=== PATIENT | female | born 1950 ===

== ENCOUNTER 2022-01-27 21:09 | Emergency (ER) | payer SELFPAY ==
[2022-01-27 21:28] VITALS: BP 136/50; PULSE 86; RESP 14; TEMP 36.2; O2SAT 99
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
[2022-01-27 23:05] VITALS: BP 136/50; PULSE 86; RESP 14; TEMP 36.2; O2SAT 99
== END 2022-01-27 23:07 | disposition home or self-care (01) ==
PROVIDERS: Emergency Provider Emergency Medicine
DX: Z59.00 Homelessness unspecified; F22 Delusional disorders
CPT/HCPCS: 99284; 99282

== ENCOUNTER 2023-03-24 15:09 | Emergency (ER) | payer SELFPAY ==
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
[2023-03-24 16:34] LABS: Bilirubin Negative (Negative); Blood Negative (Negative); Clarity Clear (Clear); Glucose Negative (Negative); Ketones Negative (Negative); Leukocyte Esterase Negative (Negative); Nitrite Negative (Negative); Urobilinogen 0.2 mg/dL (Up to 0.2); pH 5.5 (5-8)
[2023-03-24 16:45] LABS: *AMPHETAMINES SCREEN URINE Negative (Negative); *BARBITURATES SCREEN URINE Negative (Negative); *BENZODIAZEPINES SCREEN URINE Negative (Negative); Cannabinoids THC Negative (Negative); Cocaine Screen,Urine Negative (Negative); METHADONE URINE SCREEN Negative (Negative); OPIATES URINE SCREEN Negative (Negative)
[2023-03-24 16:49] LABS: Tricyclic Antidepressants Negative (Negative)
--- NOTE | 2023-03-24 19:37 | PDOC.MHCN ---
Date of service: 03/24/23 Time of Service: 19:37 Mental Health Emergency Note Release NK release signed:: Yes Reason for Visit This clinician supported [facility]'s Department out to [facility] to execute a MH Warrant by BENNIE Jeffers today. In the last 2 weeks has the pt presented for ES prior to today?: No Client Information Client is: New (The client has refused services since [facility]'s first involvement. ) Well Housed: No,status: Homeless Non Suicidal Self Injury Current: No History: No Safety Risk/Harm to Self or Others Current Ideation to Harm Self or Others: No Risk: Does risk to harm exist?: yes. Access to means: No. Risk: Moderate Risk Duty to warn indicated: No Asssessment/Mental Status Appearance: Other (The client is wearing many different layers to keep herself warm as the temperatures have begun to drop significantly.) Attitude: Cooperative, Guarded, Hostile and Other (uncooperative) Behavior: Agitated and Other (The client is argumentative and avoidant.) Speech: Normal and Other (Rapid) Affect: Cogruent with mood Mood: Elevated and Irritable Thought process: Racing, Loose associations and Tangential Hallucinations: No Delusions: yes, Mandaen and Persectory/Paranoid Attention: Wandering Perception: Derealization Orientation: Fully orientated Memory: Intact Insight: Fair Judgement: Poor Neurovegetative Symptoms Sleep: No change (Due to sleeping in a tent she reported being cold. ) Appetitie: No change Interests: No change Energy: No change Libido: Not applicable Substance Use: Do you use nicotine?: No Have you used substances in the last 7 days?: No Additional Issues: Assaultive/Threatening Behavior: No Medical Concerns: No Client engaged in active self harm w/weapon: No Threatening to run away: No Child reported abuse/neglect: No Voluntarily presenting for services: No Domestic violence is a concern: No Extreme Psychosis or extreme behavior is present: Yes Impression Client is a 71 y/o single female that is conically homeless due to her again, chronic MH issues. She has been evicted from most of the shelters during the COVID pandemic for her delusional and accusatory behaviors that put her at serious risk of harm. Per her botherAristides, the client has been hospitalized at [facility] in [facility] and was institutionalized in [facility]. She was reported to have been supported by her parents for much of her life and then decided to move back home after her father passed in 2000. Her brother's had to make her leave due to behaviors (not specified). In 2009 her mother passed as well. Aristides stated that he and his bother have had periodic calls from her to chat. Aristides reported that she has lived in [place], [place] and [place] and in the past 5 years in [place]. 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 The client reported that she moved to [place] for it being pedestrian friendly. She has lived in many different housing facilities due to her hopelessness. More recently, in the past several months she has been living in a tent in the back of a family's yard. This woman, Alicia Jin offered the client a tent, full framed bed, bedding a environmentally friendly commode and more recently a flash potty for comfort and safety after the client accused her of tampering with the commode resulting in it overflowing in the tent my tent that is actually owned by the civilian/woman who owns the property. . This woman, has also tried to find housing for the client that meets her specific disability and almost had one with [facility] however, [facility] stated that they needed the client to be involved with other services before they rented to her which the client has consistently been resistant to based on either fact or delusional believes. The client, despite this civilian's attempts was heard accusing her of putting chemicals into the air around her tent that are being pushed into her body through the tent covering. She reported noticing yellow grass around the tent in late January that proves' she is trying to harm her. She reported that [facility] is in charge of the hotels that support prostitution and drug pushing as well as, constant air pollution of chemicals to harm her. She stated that she was in this position back on August 21 (warrant) and because the state identified psychiatrist let her go, [facility], has made it there mission to get her again. She accuses this clinician of being a heroin user and addresses other [facility] coworkers with her diagnosis of their health issues i.e. this clinician is fat and a heroin user. She notes, and is consistent that she will not meet with anyone who is not a adventism person and shows her proof that they are not using heroin via a UA. It is very prominent, that even with said proof she would not believe/accuse the test as being altered. Client is known to [facility] and has had interactions with [facility] since November of 2021, however when offered services by [facility] the client has declined. The client has no verbalized intent of self harm, however, her continued delusional accusations toward Governor [place] as well as, others in the community she poses a huge risk of harm to herself inadvertently as her accusations are what she truly believes/delusions. These delusions are around everyone being a heroin user and drug pusher, as well as contaminating the air she breathes. Plan/Disposition Recommended Disposition: Hospitalization (referrals sent) No. Plan: The MH Warrant in its entirety has been faxed out. It tis this clinician's belief that if the client were to accost a community member with her accusations, who may possibly have a substance use disorder, she could unintentionally put herself at risk of harm or even without even knowing so. Person reported agreement to plan: No Reports/communication Outcome discussed with: ED/Personnel
--- NOTE | 2023-03-24 22:19 | NUR.NOTE ---
This RN attempted to collect blood from the PT. the PT refused the blood draw. ED MD notified. PT ok to not get labs drawn per ED MD renny Nursing Note:
--- NOTE | 2023-03-25 07:22 | W.EDPROG ---
Date of service: 03/25/23 Time of Service: 07:22 Medical Decision Making Resting comfortably overnight no acute distress. On involuntary hold, EEG for delusions and paranoia. Awaiting placement Sign Out Sign Out Data: Sign Out Comment: Patient here with paranoid delusional thought on warrant for emergency examination. Initial certification was performed by myself. Second certification pending by psychiatrist. Last updated by Rip Angelo MD at 03/24/23 16:43 Sign Out Comment: Psychiatric emergency hold. Pending placement and second certification by psychiatrist. Patient hemodynamically stable. Last updated by Jerad Ward DO at 03/24/23 22:19 Discharge Plan Discharge Details Chief Complaint: PsychEval Primary Care Provider: Unknown,Unknown ED Provider: Pradip Hendrickson Home Meds and New Rx's Prescriptions: No Action No Known Home Meds
--- NOTE | 2023-03-25 14:50 | W.EDPROG ---
Date of service: 03/25/23 Time of Service: 14:50 Medical Decision Making Patient signed out to me. On an EE hold for psychosis. Patient was evaluated for second CERT and a second CERT was filed. However legal reevaluated the case and has rescinded this certification. Patient was reevaluated by mental health. She continues to be psychotic and unable to fully develop a plan if she were to be discharged. Sign Out Sign Out Data: Sign Out Comment: Patient here with paranoid delusional thought on warrant for emergency examination. Initial certification was performed by myself. Second certification pending by psychiatrist. Last updated by Rip Angelo MD at 03/24/23 16:43 Sign Out Comment: Psychiatric emergency hold. Pending placement and second certification by psychiatrist. Patient hemodynamically stable. Last updated by Jerad Ward DO at 03/24/23 22:19 Sign Out Comment: EE for delusions, awaiting placement Last updated by Pradip Hendrickson MD at 03/25/23 07:33 Discharge Plan Discharge Details Chief Complaint: PsychEval Primary Care Provider: Unknown,Unknown ED Provider: Casey Hutson Home Meds and New Rx's Prescriptions: No Action No Known Home Meds
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
--- NOTE | 2023-03-25 17:19 | CMSP_ITS ---
Date of service: 03/25/23 Time of Service: 17:19 Care Management Safety Plan Status Status: Involuntary Reason for Wait Reason for Wait: Inpatient Admission Safety Plan Safety Plan: Safety plan has been established to meet the needs of the patient, and consideration of the care team, to adhere to patient goals, identify restrictions based on behavioral status, address nutrition, and determine allowed personal belongings, tools for hygiene and personal care. Determine level of activity including ambulation, level of supervision, visitors, and determine privileges based on behaviors and level of engagement by pt. SAFETY PLAN: 1. Will remain on SI/HI precautions. In Paper Clothes 2. Will remain in room under direct supervision of one-on-one staff at all times provided by [employer]; JASBIR, PROJECT FINANCE ANALYST storeroom keeper. 3. May have paper cups, plates, finger foods as well as a cardboard spoon 4. Follow [facility] Management of the Admitted Behavioral Health Patient policy. 5. Comfort bath system or may shower in Zone B. 6. No personal belongings 7. Visitors: none at this time 8. Activities: at nursing's discretion, soft items only 9. ?Bathroom privileges 10. Phone: None at this time 11. Due to INVOLUNTARY status, patient is being held at [facility] by the Department of Mental Health ([facility]) until 2nd certification by [facility] Psychiatrist can be performed (within 24 hours). Staff will provide de-escalation support (CPI) as needed. If patient wishes to leave [facility], staff will contact [facility] Crisis Screener ([phone]) and On-Call Field Hockey And Lacrosse Coach ([phone]) as soon as possible. In the event of elopement, notify [place] [employer] ([phone]). Patient is currently involuntarily at [facility]. [facility] Frontline Pets And Pet Supplies Salesperson will continue seeking placement. Please contact the Track Inspecting Supervisor Field Hockey And Lacrosse Coach ([phone]) for any needed changes to Safety Plan. Safety plan has been provided to interdepartmental care team. Patient will be transported by [employer] at time of discharge.
--- NOTE | 2023-03-25 17:19 | PDOC.CMSAFE ---
Date of service: 03/25/23 Time of Service: 17:19 Care Management Safety Plan Status Status: Involuntary Reason for Wait Reason for Wait: Inpatient Admission Safety Plan Safety Plan: Safety plan has been established to meet the needs of the patient, and consideration of the care team, to adhere to patient goals, identify restrictions based on behavioral status, address nutrition, and determine allowed personal belongings, tools for hygiene and personal care. Determine level of activity including ambulation, level of supervision, visitors, and determine privileges based on behaviors and level of engagement by pt. SAFETY PLAN: 1. Will remain on SI/HI precautions. In Paper Clothes 2. Will remain in room under direct supervision of one-on-one staff at all times provided by CPSO; JASBIR, DEPOSIT CLERK rehabilitation services director. 3. May have paper cups, plates, finger foods as well as a cardboard spoon 4. Follow [facility] Management of the Admitted Behavioral Health Patient policy. 5. Comfort bath system or may shower in Zone B. 6. No personal belongings 7. Visitors: none at this time 8. Activities: at nursing's discretion, soft items only 9. ?Bathroom privileges 10. Phone: None at this time 11. Due to INVOLUNTARY status, patient is being held at [facility] by the Department of Mental Health ([facility]) until 2nd certification by [facility] Psychiatrist can be performed (within 24 hours). Staff will provide de-escalation support (CPI) as needed. If patient wishes to leave [facility], staff will contact [facility] Crisis Screener ([phone]) and On-Call Ripening Room Hand ([phone]) as soon as possible. In the event of elopement, notify [place] [employer] Police ([phone]). Patient is currently involuntarily at [facility]. [facility] Frontline Hotel Assistant Manager will continue seeking placement. Please contact the Show Girl Ripening Room Hand ([phone]) for any needed changes to Safety Plan. Safety plan has been provided to interdepartmental care team. Patient will be transported by [facility] at time of discharge.
--- NOTE | 2023-03-26 08:14 | ED.PROG_ITS ---
Date of service: 03/26/23 Time of Service: 07:45 Medical Decision Making This patient was signed out to me. Please see previous notes for H&P and initial eval. In brief, 72yo F presenting with psychosis. Currently pending second certification. Second certification completed at approximately 1400, patient remains on involuntary psych hold. [facility] will revaluate patient this evening. No acute behavioral events on my shift. Continues to refuse labs. Offered PO zyprexa which patient declined. To me she requests that a restraining order be placed on the psychiatrist who spoke to her because he was not very nice and that he no longer treat her until he passes a legal drug test. Signed out to oncoming physician, patient remains boarding in the ED awaiting psych placement. Sign Out Sign Out Data: Sign Out Comment: Patient here with paranoid delusional thought on warrant for emergency examination. Initial certification was performed by myself. Second certification pending by psychiatrist. Last updated by Rip Angelo MD at 03/24/23 16:43 Sign Out Comment: Psychiatric emergency hold. Pending placement and second certification by psychiatrist. Patient hemodynamically stable. Last updated by Jerad Ward DO at 03/24/23 22:19 Sign Out Comment: EE for delusions, awaiting placement Last updated by Pradip Hendrickson MD at 03/25/23 07:33 Sign Out Comment: Patient was placed on EEG with second certification which was then rescinded by the state. Patient is still significantly psychotic. Signed out to Dr. Ward Last updated by Caesy Hutson MD at 03/25/23 15:11 Sign Out Comment: Patient initially admitted here, EE once, second CERT complete, state refused and recommended safety plan and discharge home. I disagree with this and do not think it is safe or in the patient's best interest. Repeat EE process has been started. Pending second certification again. Last updated by Jerad Ward DO at 03/25/23 20:40 Sign Out Comment: This is an unfortunate 72-year-old female who is delusional and paranoid who has been living in a tent and was brought in on a warrant. She was initially EE'd but this was rescinded by the Mingler Operator, despite the fact that psychiatry and the emergency physician both felt she did not have capacity to make medical decisions. They have restarted the process to EE her and she is awaiting her second second CERT. She slept throughout the night and had no issues. Last updated by Betty Cool MD at 03/26/23 08:08 Sign Out Comment: 2nd cert done this evening at around 1400. [facility] to re-eval at 1930. Pending psych placement. No acute behavioral events or restraints on my time. Last updated by Nhi Evans MD at 03/26/23 15:56 Discharge Plan Discharge Details Chief Complaint: PsychEval Primary Care Provider: Unknown,Unknown ED Provider: Nhi Evans Home Meds and New Rx's Prescriptions: No Action No Known Home Meds
--- NOTE | 2023-03-26 13:44 | NUR.NOTE ---
Nursing Note: Pt went off on CPSO stating how dare you come in to my room with perfume on. The cpso was not wearing anything that had any perfume in it. The pt then refused to speak with the psychiatrist for her second certification for the EE until he proved to her that he was not on heroin because there is a lot of heroin in the [facility] and heroin makes people lie. Despite his efforts in trying to redirect her, he was not successful and did not get far with the conversation before hanging up the zoom conference. I went in to get the tablet and she stated how dare he try to talk to me without proving that he is not on heroin. I would also like it to be known that there is no one who needs to come in to my room with perfume on. Can you believe I had to smell the perfume and then had to talk to the nano without him proving to me that he is not on heroin. The patient is currently sitting on her bed talking to herself. Continues to have both auditory and visual hallucinations. This conversation/ occurrence was relayed to both the provider and the charge nurse.
--- NOTE | 2023-03-26 14:46 | CMSP_ITS ---
Care Management Safety Plan Status Status: Involuntary Reason for Wait Reason for Wait: Assessment/Screening Safety Plan Safety Plan: Awaiting additional 2nd certification; refiled as provider assessment incongru ent with [facility] Psychiatrist and Legal assessments. Awaiting further guidance on patient status and treatment planning. Safety plan has been established to meet the needs of the patient, and consideration of the care team, to adhere to patient goals, identify restrictions based on behavioral status, address nutrition, and determine allowed personal belongings, tools for hygiene and personal care. Determine level of activity including ambulation, level of supervision, visitors, and determine privileges based on behaviors and level of engagement by pt. SAFETY PLAN: 1. Will remain on SI/HI precautions. In Paper Clothes 2. Will remain in room under direct supervision of one-on-one staff at all times provided by CPS[employer]; JASBIR, CUT LACE MACHINE OPERATOR supervisor graphite. 3. May have paper cups, plates, finger foods as well as a cardboard spoon 4. Follow [facility] Management of the Admitted Behavioral Health Patient policy. 5. Comfort bath system, may shower in Zone B. 6. No personal belongings; at RN discretion 7. Visitors: none at this time 8. Activities: at nursing's discretion, soft items only 9. ?Bathroom privileges without limitation in Zone B 10. Phone: Limited to [facility] cordless phone at this time. 11. Due to INVOLUNTARY status, patient is being held at [facility] by the Department of Mental Health ([facility]) until 2nd certification by [facility] Psychiatrist can be performed (within 24 hours). Staff will provide de-escalation support (CPI) as needed. If patient wishes to leave [facility], staff will contact [facility] Crisis Screener ([phone]) and On-Call Flat Lock Machine Operator ([phone]) as soon as possible. In the event of elopement, notify [place] State Police ([phone]). Patient is currently involuntarily at [facility]. [facility] Frontline Web Site Administrator will continue seeking placement. Please contact the Ore Dryer Flat Lock Machine Operator ([phone]) for any needed changes to Safety Plan. Safety plan has been provided to interdepartmental care team. Patient will be transported by individualized education plan aide at time of discharge.
--- NOTE | 2023-03-26 14:46 | PDOC.CMSAFE ---
Care Management Safety Plan Status Status: Involuntary Reason for Wait Reason for Wait: Assessment/Screening Safety Plan Safety Plan: Awaiting additional 2nd certification; refiled as provider assessment incongruent with [facility] Psychiatrist and Legal assessments. Awaiting further guidance on patient status and treatment planning. Safety plan has been established to meet the needs of the patient, and consideration of the care team, to adhere to patient goals, identify restrictions based on behavioral status, address nutrition, and determine allowed personal belongings, tools for hygiene and personal care. Determine level of activity including ambulation, level of supervision, visitors, and determine privileges based on behaviors and level of engagement by pt. SAFETY PLAN: 1. Will remain on SI/HI precautions. In Paper Clothes 2. Will remain in room under direct supervision of one-on-one staff at all times provided by [employer]PSO; JASBIR, TABLE SAW OPERATOR core fitter. 3. May have paper cups, plates, finger foods as well as a cardboard spoon 4. Follow [facility] Management of the Admitted Behavioral Health Patient policy. 5. Comfort bath system, may shower in Zone B. 6. No personal belongings; at RN discretion 7. Visitors: none at this time 8. Activities: at nursing's discretion, soft items only 9. ?Bathroom privileges without limitation in Zone B 10. Phone: Limited to [facility] cordless phone at this time. 11. Due to INVOLUNTARY status, patient is being held at [facility] by the Department of Mental Health ([facility]) until 2nd certification by [facility] Psychiatrist can be performed (within 24 hours). Staff will provide de-escalation support (CPI) as needed. If patient wishes to leave [facility], staff will contact [facility] Crisis Screener ([phone]) and On-Call [employer] 365 Consultant ([phone]) as soon as possible. In the event of elopement, notify [place] State Police ([phone]). Patient is currently involuntarily at [facility]. [facility] Frontline Business And Services Instructor will continue seeking placement. Please contact the Cold Reduction Roller Office 365 Consultant ([phone]) for any needed changes to Safety Plan. Safety plan has been provided to interdepartmental care team. Patient will be transported by [employer] at time of discharge.
--- NOTE | 2023-03-26 21:21 | NUR.NOTE ---
Pt spoke to [facility],. Pt was not pleased that she was awaken by myself asking if a conversation could be had with [facility]. Pt stated I am not trust worthy because I worn chemicals into her room, referencing my perfume. Pt states dehydration but is refusing beverages. Pt sensitive to smells, lotions, creams etc....
--- NOTE | 2023-03-26 23:14 | W.EDPROG ---
Date of service: 03/25/23 Time of Service: 22:00 Narrative I received signout on the patient. She was brought in on a warrants and was EE but this was reversed by an energy attorney. The EE was reinitiated and she is awaiting her second certification. She remained stable overnight and slept without any complaints. I have signed her out to the oncoming provider Sign Out Sign Out Data: Sign Out Comment: Patient here with paranoid delusional thought on warrant for emergency examination. Initial certification was performed by myself. Second certification pending by psychiatrist. Last updated by Rip Angelo MD at 03/24/23 16:43 Sign Out Comment: Psychiatric emergency hold. Pending placement and second certification by psychiatrist. Patient hemodynamically stable. Last updated by Jerad Ward DO at 03/24/23 22:19 Sign Out Comment: EE for delusions, awaiting placement Last updated by Pradip Hendrickson MD at 03/25/23 07:33 Sign Out Comment: Patient was placed on EEG with second certification which was then rescinded by the state. Patient is still significantly psychotic. Signed out to Dr. Ward Last updated by Casey Hutson MD at 03/25/23 15:11 Sign Out Comment: Patient initially admitted here, EE once, second CERT complete, state refused and recommended safety plan and discharge home. I disagree with this and do not think it is safe or in the patient's best interest. Repeat EE process has been started. Pending second certification again. Last updated by Jerad Ward DO at 03/25/23 20:40 Sign Out Comment: This is an unfortunate 72-year-old female who is delusional and paranoid who has been living in a tent and was brought in on a warrant. She was initially EE'd but this was rescinded by the ? Assistant Corporation Counsel, despite the fact that psychiatry and the emergency physician both felt she did not have capacity to make medical decisions. They have restarted the process to EE her and she is awaiting her second second CERT. She slept throughout the night and had no issues. Last updated by Betty Cool MD at 03/26/23 08:08 Sign Out Comment: 2nd cert done this evening at around 1400. HS to re-eval at 1930. Pending psych placement. No acute behavioral events or restraints on my time. Last updated by Nhi Evans MD at 03/26/23 15:56 Sign Out Comment: Patient on EE, refused to participate with [facility] diaz this evening. Insisting that everyone prove that they aren't on drugs before she'll talk to them. No acute issues during my shift. Placement still pending. Last updated by Casey Hutson MD at 03/26/23 22:34 Discharge Plan Discharge Details Chief Complaint: PsychEval Primary Care Provider: Unknown,Unknown ED Provider: Casey Hutson Home Meds and New Rx's Prescriptions: No Action No Known Home Meds
--- NOTE | 2023-03-27 00:55 | ED.PROG_ITS ---
Date of service: 03/26/23 Time of Service: 23:00 Narrative I have received signout. I am familiar with the patient. She has been EE'd again and is still awaiting placement. She is currently in bed and appears to be resting. 2:00 am: The patient appears to be resting. Remains stable. No complaints. 3:56 am: No change in patient condition. Still resting. Awaiting involuntary placement. 7:45 am: I will be signing the patient out to Dr. Angelo. Sign Out Sign Out Data: Sign Out Comment: Patient here with paranoid delusional thought on warrant for emergency examination. Initial certification was performed by myself. Second certification pending by psychiatrist. Last updated by Rip Angelo MD at 03/24/23 16:43 Sign Out Comment: Psychiatric emergency hold. Pending placement and second certification by psychiatrist. Patient hemodynamically stable. Last updated by Jerad Ward DO at 03/24/23 22:19 Sign Out Comment: EE for delusions, awaiting placement Last updated by Pradip Hendrickson MD at 03/25/23 07:33 Sign Out Comment: Patient was placed on EEG with second certification which was then rescinded by the state. Patient is still significantly psychotic. Signed out to Dr. Ward Last updated by Casey Hutson MD at 03/25/23 15:11 Sign Out Comment: Patient initially admitted here, EE once, second CERT complete, state refused and recommended safety plan and discharge home. I disagree with this and do not think it is safe or in the patient's best interest. Repeat EE process has been started. Pending second certification again. Last updated by Jerad Ward DO at 03/25/23 20:40 Sign Out Comment: This is an unfortunate 72-year-old female who is delusional and paranoid who has been living in a tent and was brought in on a warrant. She was initially EE'd but this was rescinded by the ? Agency Sales Representative, despite the fact that psychiatry and the emergency physician both felt she did not have capacity to make medical decisions. They have restarted the process to EE her and she is awaiting her second second CERT. She slept throughout the night and had no issues. Last updated by Betty Cool MD at 03/26/23 08:08 Sign Out Comment: 2nd cert done this evening at around 1400. HS to re-eval at 1930. Pending psych placement. No acute behavioral events or restraints on my time. Last updated by Nhi Evans MD at 03/26/23 15:56 Sign Out Comment: Patient on EE, refused to participate with [facility] valenciacelia this evening. Insisting that everyone prove that they aren't on drugs before she'll talk to them. No acute issues during my shift. Placement still pending. Last updated by Casey Hutson MD at 03/26/23 22:34 Sign Out Comment: This is 72 yo female who has been EE'd for paranoia and delusions. She has refused any medication but has been otherwise cooperative. The patient slept or rested last night. At that time she appeared to be talking to herself but did not require any interventions. Last updated by Betty Cool MD at 03/27/23 07:53 Discharge Plan Discharge Details Chief Complaint: PsychEval Primary Care Provider: Unknown,Unknown ED Provider: Betty Cool Home Meds and New Rx's Prescriptions: No Action No Known Home Meds
--- NOTE | 2023-03-27 14:34 | CMSP_ITS ---
Care Management Safety Plan Status Status: Involuntary Reason for Wait Reason for Wait: Inpatient Admission Safety Plan Safety Plan: Safety plan has been established to meet the needs of the patient, and consideration of the care team, to adhere to patient goals, identify restrictions based on behavioral status, address nutrition, and determine allowed personal belongings, tools for hygiene and personal care. Determine level of activity including ambulation, level of supervision, visitors, and determine privileges based on behaviors and level of engagement by pt. INVOLUNTARY SAFETY PLAN: 1. Will remain on SI/HI precautions. In Paper Clothes 2. Will remain in room under direct supervision of one-on-one staff at all times provided by CPSO; OFFICE SERVICES COORDINATOR, SUPERVISOR TOY ASSEMBLY pile operator. 3. May have paper cups, plates, finger foods as well as a cardboard spoon 4. Follow [facility] Management of the Admitted Behavioral Health Patient policy. 5. Comfort bath system, may shower in Zone B. 6. No personal belongings; at RN discretion 7. Visitors: none at this time 8. Activities: at nursing's discretion, soft items only 9. ?Bathroom privileges without limitation in Zone B 10. Phone: Limited to [facility] cordless phone at this time. 11. Due to INVOLUNTARY status, patient is being held at [facility] by the Department of Mental Health ([facility]) until 2nd certification by [facility] Psychiatrist can be performed (within 24 hours). Staff will provide de-escalation support (CPI) as needed. If patient wishes to leave [facility], staff will contact [facility] Crisis Screener ([phone]) and On-Call Double Spindle Shaper Operator ([phone]) as soon as possible. In the event of elopement, notify [facility] Police ([phone]). Patient is currently involuntarily at [facility]. [facility] Frontline Supercalender Operator Helper will continue seeking placement. Please contact the Density Control Puncher Double Spindle Shaper Operator ([phone]) for any needed changes to Safety Plan. Safety plan has been provided to interdepartmental care team. Patient will be transported by [employer] at time of discharge.
--- NOTE | 2023-03-27 14:34 | PDOC.CMSAFE ---
Care Management Safety Plan Status Status: Involuntary Reason for Wait Reason for Wait: Inpatient Admission Safety Plan Safety Plan: Safety plan has been established to meet the needs of the patient, and consideration of the care team, to adhere to patient goals, identify restrictions based on behavioral status, address nutrition, and determine allowed personal belongings, tools for hygiene and personal care. Determine level of activity including ambulation, level of supervision, visitors, and determine privileges based on behaviors and level of engagement by pt. INVOLUNTARY SAFETY PLAN: 1. Will remain on SI/HI precautions. In Paper Clothes 2. Will remain in room under direct supervision of one-on-one staff at all times provided by CPSO; LAUNDROMAT MANAGER, DIRECTOR LIFE spray booth operator. 3. May have paper cups, plates, finger foods as well as a cardboard spoon 4. Follow [facility] Management of the Admitted Behavioral Health Patient policy. 5. Comfort bath system, may shower in Zone B. 6. No personal belongings; at RN discretion 7. Visitors: none at this time 8. Activities: at nursing's discretion, soft items only 9. ?Bathroom privileges without limitation in Zone B 10. Phone: Limited to [facility] cordless phone at this time. 11. Due to INVOLUNTARY status, patient is being held at [facility] by the Department of Mental Health ([facility]) until 2nd certification by [facility] Psychiatrist can be performed (within 24 hours). Staff will provide de-escalation support (CPI) as needed. If patient wishes to leave [facility], staff will contact [facility] Crisis Screener ([phone]) and On-Call Machinist Apprentice Wood ([phone]) as soon as possible. In the event of elopement, notify [facility] Police ([phone]). Patient is currently involuntarily at [facility]. [facility] Frontline Glaze Wiper will continue seeking placement. Please contact the Palliative Care Specialist Machinist Apprentice Wood ([phone]) for any needed changes to Safety Plan. Safety plan has been provided to interdepartmental care team. Patient will be transported by [employer] at time of discharge.
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
--- NOTE | 2023-03-27 16:35 | W.EDPROG ---
Date of service: 03/27/23 Time of Service: 16:35 Medical Decision Making Patient here awaiting placement for emergency examination. Patient continues to exhibit delusional and paranoid thought. Sign Out Sign Out Data: Sign Out Comment: Patient here with paranoid delusional thought on warrant for emergency examination. Initial certification was performed by myself. Second certification pending by psychiatrist. Last updated by Rip Angelo MD at 03/24/23 16:43 Sign Out Comment: Psychiatric emergency hold. Pending placement and second certification by psychiatrist. Patient hemodynamically stable. Last updated by Jerad Ward DO at 03/24/23 22:19 Sign Out Comment: EE for delusions, awaiting placement Last updated by Pradip Hendrickson MD at 03/25/23 07:33 Sign Out Comment: Patient was placed on EEG with second certification which was then rescinded by the state. Patient is still significantly psychotic. Signed out to Dr. Ward Last updated by Casey Hutson MD at 03/25/23 15:11 Sign Out Comment: Patient initially admitted here, EE once, second CERT complete, state refused and recommended safety plan and discharge home. I disagree with this and do not think it is safe or in the patient's best interest. Repeat EE process has been started. Pending second certification again. Last updated by Jerad Ward DO at 03/25/23 20:40 Sign Out Comment: This is an unfortunate 72-year-old female who is delusional and paranoid who has been living in a tent and was brought in on a warrant. She was initially EE'd but this was rescinded by the ? Epic Ambulatory Analysts, despite the fact that psychiatry and the emergency physician both felt she did not have capacity to make medical decisions. They have restarted the process to EE her and she is awaiting her second second CERT. She slept throughout the night and had no issues. Last updated by Betty Cool MD at 03/26/23 08:08 Sign Out Comment: 2nd cert done this evening at around 1400. [facility] to re-eval at 1930. Pending psych placement. No acute behavioral events or restraints on my time. Last updated by Nhi Evans MD at 03/26/23 15:56 Sign Out Comment: Patient on EE, refused to participate with [facility] diaz this evening. Insisting that everyone prove that they aren't on drugs before she'll talk to them. No acute issues during my shift. Placement still pending. Last updated by Casey Hutson MD at 03/26/23 22:34 Sign Out Comment: This is 72 yo female who has been EE'd for paranoia and delusions. She has refused any medication but has been otherwise cooperative. The patient slept or rested last night. At that time she appeared to be talking to herself but did not require any interventions. Last updated by Betty Cool MD at 03/27/23 07:53 Discharge Plan Discharge Details Chief Complaint: PsychEval Clinical Impression: Delusional disorder, Paranoia Primary Care Provider: Unknown,Unknown ED Provider: Rip Angelo Home Meds and New Rx's Prescriptions: No Action No Known Home Meds
--- NOTE | 2023-03-27 16:42 | ED.PROG_ITS ---
Date of service: 03/27/23 Time of Service: 16:30 Medical Decision Making This patient was signed out to me. Please see previous notes for H&P and initial eval. In brief, 72yo F with psychosis, delusions, currently EEd/involuntary status, pending psychiatric placement. On my time continuing to refuse labs, meds, and [facility] assessment but no acute behavioral issues. Continues to board in the ED awaiting psych placement. Signed out to oncoming physician, plan at this time remains inpatient psych when bed identified. Sign Out Sign Out Data: Sign Out Comment: Patient here with paranoid delusional thought on warrant for emergency examination. Initial certification was performed by myself. Second certification pending by psychiatrist. Last updated by Rip Angelo MD at 03/24/23 16:43 Sign Out Comment: Patient awaiting involuntary emergency examination. She continues to refuse interventions. She continues to exhibit delusional thought and paranoia. Last updated by Rip Angelo MD at 03/27/23 16:40 Sign Out Comment: Psychiatric emergency hold. Pending placement and second certification by psychiatrist. Patient hemodynamically stable. Last updated by Jerad Ward DO at 03/24/23 22:19 Sign Out Comment: EE for delusions, awaiting placement Last updated by Pradip Hendrickson MD at 03/25/23 07:33 Sign Out Comment: Patient was placed on EEG with second certification which was then rescinded by the state. Patient is still significantly psychotic. Signed out to Dr. Ward Last updated by Casey Hutson MD at 03/25/23 15:11 Sign Out Comment: Patient initially admitted here, EE once, second CERT complete, state refused and recommended safety plan and discharge home. I disagree with this and do not think it is safe or in the patient's best interest. Repeat EE process has been started. Pending second certification again. Last updated by Jerad Ward DO at 03/25/23 20:40 Sign Out Comment: This is an unfortunate 72-year-old female who is delusional and paranoid who has been living in a tent and was brought in on a warrant. She was initially EE'd but this was rescinded by the Plastic Surgery Coordinator, despite the fact that psychiatry and the emergency physician both felt she did not have capacity to make medical decisions. They have restarted the process to EE her and she is awaiting her second second CERT. She slept throughout the night and had no issues. Last updated by Betty Cool MD at 03/26/23 08:08 Sign Out Comment: 2nd cert done this evening at around 1400. [facility] to re-eval at 1930. Pending psych placement. No acute behavioral events or restraints on my time. Last updated by Nhi Evans MD at 03/26/23 15:56 Sign Out Comment: Patient on EE, refused to participate with [facility] valenciacelia this evening. Insisting that everyone prove that they aren't on drugs before she'll talk to them. No acute issues during my shift. Placement still pending. Last updated by Casey Hutson MD at 03/26/23 22:34 Sign Out Comment: This is 72 yo female who has been EE'd for paranoia and del usions. She has refused any medication but has been otherwise cooperative. The patient slept or rested last night. At that time she appeared to be talking to herself but did not require any interventions. Last updated by Betty Cool MD at 03/27/23 07:53 Discharge Plan Discharge Details Chief Complaint: PsychEval Clinical Impression: Delusional disorder, Paranoia Primary Care Provider: Unknown,Unknown ED Provider: Nhi Evans Home Meds and New Rx's Prescriptions: No Action No Known Home Meds
--- NOTE | 2023-03-27 19:30 | NUR.NOTE ---
PT refused to talk to [facility] MH worker via zoom. ED MD notified. Nursing Note:
--- NOTE | 2023-03-28 07:47 | ED.PROG_ITS ---
Date of service: 03/28/23 Time of Service: 07:49 Medical Decision Making The patient was obtained in signout from Dr. Marilou Evans, and she was a continued ED observation overnight for behavioral health evaluation. The patient again refused Zoom behavioral health based evaluation. The patient continues to exhib it features of psychosis. She developed a significant paranoia related to medical providers interacting with her, citing that she was concerned that everyone was on opioids. When approached by healthcare providers, the patient would ask them if they have been screened for opioids, and if they answered in the negative, she would refuse to interact with them. The patient continues to have normal stable medical physiology at this time and is cleared for ongoing evaluation by local behavioral health providers. Case signed out to Dr. Rip Angelo at 8 AM. Sign Out Sign Out Data: Sign Out Comment: Patient here with paranoid delusional thought on warrant for emergency examination. Initial certification was performed by myself. Second certification pending by psychiatrist. Last updated by Rip Angelo MD at 03/24/23 16:43 Sign Out Comment: Patient awaiting involuntary emergency examination. She continues to refuse interventions. She continues to exhibit delusional thought and paranoia. Last updated by Rip Angelo MD at 03/27/23 16:40 Sign Out Comment: 72yo F, pyschosis, involuntary. EEd. Pending placement. Refusing labs and refusing to speak with mental health. No behavioral or violence issues. Last updated by Nhi Evans MD at 03/27/23 22:27 Sign Out Comment: Psychiatric emergency hold. Pending placement and second certification by psychiatrist. Patient hemodynamically stable. Last updated by Jerad Ward DO at 03/24/23 22:19 Sign Out Comment: EE for delusions, awaiting placement Last updated by Pradip Hendrickson MD at 03/25/23 07:33 Sign Out Comment: Patient was placed on EEG with second certification which was then rescinded by the state. Patient is still significantly psychotic. Signed out to Dr. aWrd Last updated by Casey Hutson MD at 03/25/23 15:11 Sign Out Comment: Patient initially admitted here, EE once, second CERT complete, state refused and recommended safety plan and discharge home. I disagree with this and do not think it is safe or in the patient's best interest. Repeat EE process has been started. Pending second certification again. Last updated by Jerad Ward DO at 03/25/23 20:40 Sign Out Comment: This is an unfortunate 72-year-old female who is delusional and paranoid who has been living in a tent and was brought in on a warrant. She was initially EE'd but this was rescinded by the ? [employer], despite the fact that psychiatry and the emergency physician both felt she did not have capacity to make medical decisions. They have restarted the process to EE her and she is awaiting her second second CERT. She slept throughout the night and had no issues. Last updated by Betty Cool MD at 03/26/23 08:08 Sign Out Comment: 2nd cert done this evening at around 1400. [facility] to re-eval at 1930. Pending psych placement. No acute behavioral events or restraints on my time. Last updated by Nhi Evans MD at 03/26/23 15:56 Sign Out Comment: Patient on EE, refused to participate with [facility] valenciacelia this evening. Insisting that everyone prove that they aren't on drugs before she'll talk to them. No acute issues during my shift. Placement still pending. Last updated by Casey Hutson MD at 03/26/23 22:34 Sign Out Comment: This is 72 yo female who has been EE'd for paranoia and delusions. She has refused any medication but has been otherwise cooperative. The patient slept or rested last night. At that time she appeared to be talking to herself but did not require any interventions. Last updated by Betty Cool MD at 03/27/23 07:53 Discharge Plan Discharge Details Chief Complaint: PsychEval Clinical Impression: Delusional disorder, Paranoia Primary Care Provider: Unknown,Unknown ED Provider: Clifford Woodall Home Meds and New Rx's Prescriptions: No Action No Known Home Meds
--- NOTE | 2023-03-28 16:46 | ED.PROG_ITS ---
Date of service: 03/28/23 Time of Service: 16:46 Medical Decision Making I was informed by [facility] human services crisis screener [facility], that [facility] legal team will refuse to allow for emergency examination and has declined request for EE. I spoke with Joseph the [facility] acute care physician who confirmed disposition from [facility]. I informed Joseph of my ongoing concern with for this patient's wellbeing and explicitly stated that the patient continues to exhibit paranoid delusional thought and would be at imminent risk of potential harm should she not be hospitalized involuntarily. He verbalized understanding of this concern. I spoke in very child aging department supervisor and wrist manager learning and informed them of [facility] decision. Plan will be for voluntary psychiatric treatment if patient agrees versus allow the patient to board overnight until social contact worker can be further implemented in the outpatient setting versus allow the patient to leave should she desire. I spoke with the patient about the decision from [facility]. She refuses voluntary psychiatric treatment. She is agreeable to staying overnight to allow for social contact worker to be augmented in the morning. Sign Out Sign Out Data: Sign Out Comment: Patient here with paranoid delusional thought on warrant for emergency examination. Initial certification was performed by myself. Second certification pending by psychiatrist. Last updated by Rip Angelo MD at 03/24/23 16:43 Sign Out Comment: Patient awaiting involuntary emergency examination. She continues to refuse interventions. She continues to exhibit delusional thought and paranoia. Last updated by Rip Angelo MD at 03/27/23 16:40 Sign Out Comment: 72yo F, pyschosis, involuntary. EEd. Pending placement. Refusing labs and refusing to speak with mental health. No behavioral or violence issues. Last updated by Nhi Evans MD at 03/27/23 22:27 Sign Out Comment: The patient is a 72-year-old female, who was in the ED observation over the arc of this shift for ongoing behavioral health crisis. The patient continues to exhibit delusional thinking and profound paranoia. She currently is fixated on whether or not the medical providers in the emergency department have been to screen for opioids. She is refusing to engage with any of the providers due to this paranoia. She continues to be a behavioral health hold for involuntary evaluation. Case signed out to Dr. Rip Angelo at 8 AM. Last updated by Clifford Woodall MD at 03/28/23 08:04 Sign Out Comment: Psychiatric emergency hold. Pending placement and second certification by psychiatrist. Patient hemodynamically stable. Last updated by Jerad Ward DO at 03/24/23 22:19 Sign Out Comment: EE for delusions, awaiting placement Last updated by Pradip Hendrickson MD at 03/25/23 07:33 Sign Out Comment: Patient was placed on EEG with second certification which was then rescinded by the state. Patient is still significantly psychotic. Signed out to Dr. Ward Last updated by Casey Hutson MD at 03/25/23 15:11 Sign Out Comment: Patient initially admitted here, EE once, second CERT complete, state refused and recommended safety plan and discharge home. I disagree with this and do not think it is safe or in the patient's best interest. Repeat EE process has been started. Pending second certification again. Last updated by Jerad Ward DO at 03/25/23 20:40 Sign Out Comment: This is an unfortunate 72-year-old female who is delusional and paranoid who has been living in a tent and was brought in on a warrant. She was initially EE'd but this was rescinded by the ? Human Resources Clerk, despite the fact that psychiatry and the emergency physician both felt she did not have capacity to make medical decisions. They have restarted the process to EE her and she is awaiting her second second CERT. She slept throughout the night and had no issues. Last updated by Betty Cool MD at 03/26/23 08:08 Sign Out Comment: 2nd cert done this evening at around 1400. [facility] to re-eval at 1930. Pending psych placement. No acute behavioral events or restraints on my time. Last updated by Nhi Evans MD at 03/26/23 15:56 Sign Out Comment: Patient on EE, refused to participate with [facility] diaz this evening. Insisting that everyone prove that they aren't on drugs before she'll talk to them. No acute issues during my shift. Placement still pending. Last updated by Casey Hutson MD at 03/26/23 22:34 Sign Out Comment: This is 72 yo female who has been EE'd for paranoia and delusions. She has refused any medication but has been otherwise cooperative. The patient slept or rested last night. At that time she appeared to be talking to herself but did not require any interventions. Last updated by Betty Cool MD at 03/27/23 07:53 Discharge Plan Discharge Details Chief Complaint: PsychEval Clinical Impression: Delusional disorder, Paranoia ED Provider: Rip Angelo Home Meds and New Rx's Prescriptions: No Action No Known Home Meds
--- NOTE | 2023-03-28 16:57 | CMSP_ITS ---
Date of service: 03/28/23 Time of Service: 16:57 Care Management Safety Plan Status Status: Involuntary Reason for Wait Reason for Wait: Inpatient Admission Safety Plan Safety Plan: Safety plan has been established to meet the needs of the patient, and consideration of the care team, to adhere to patient goals, identify restrictions based on behavioral status, address nutrition, and determine allowed personal belongings, tools for hygiene and personal care. Determine level of activity including ambulation, level of supervision, visitors, and det ermine privileges based on behaviors and level of engagement by pt. INVOLUNTARY SAFETY PLAN: 1. Will remain on SI/HI precautions. In Paper Clothes 2. Will remain in room under direct supervision of one-on-one staff at all times provided by [employer]; JASBIR, QUALITY ASSURANCE DIRECTOR inspector grain mill products. 3. May have paper cups, plates, finger foods as well as a cardboard spoon 4. Follow [facility] Management of the Admitted Behavioral Health Patient policy. 5. Comfort bath system, may shower in Zone B. 6. No personal belongings; at RN discretion 7. Visitors: none at this time 8. Activities: at nursing's discretion, soft items only 9. ?Bathroom privileges without limitation in Zone B 10. Phone: Limited to [facility] cordless phone at this time. 11. Due to INVOLUNTARY status, patient is being held at [facility] by the Department of Mental Health ([facility]) until 2nd certification by [facility] Psychiatrist can be performed (within 24 hours). Staff will provide de-escalation support (CPI) as needed. If patient wishes to leave [facility], staff will contact [facility] Crisis Screener ([phone]) and On-Call Client Technical Support Associate ([phone]) as soon as possible. In the event of elopement, notify [place] State Police ([phone]). Patient is currently involuntarily at [facility]. [facility] Frontline Water Resource Project Manager will continue seeking placement. Please contact the Traffic Supervisor Client Technical Support Associate ) for any needed changes to Safety Plan. Safety plan has been provided to interdepartmental care team. Patient will be transported by [employer] at time of discharge.
--- NOTE | 2023-03-28 16:57 | PDOC.CMSAFE ---
Date of service: 03/28/23 Time of Service: 16:57 Care Management Safety Plan Status Status: Involuntary Reason for Wait Reason for Wait: Inpatient Admission Safety Plan Safety Plan: Safety plan has been established to meet the needs of the patient, and consideration of the care team, to adhere to patient goals, identify restrictions based on behavioral status, address nutrition, and determine allowed personal belongings, tools for hygiene and personal care. Determine level of activity including ambulation, level of supervision, visitors, and determine privileges based on behaviors and level of engagement by pt. INVOLUNTARY SAFETY PLAN: 1. Will remain on SI/HI precautions. In Paper Clothes 2. Will remain in room under direct supervision of one-on-one staff at all times provided by [employer]; JASBIR, CESSATION SYSTEMS OUTREACH SPECIALIST pellet press operator. 3. May have paper cups, plates, finger foods as well as a cardboard spoon 4. Follow [facility] Management of the Admitted Behavioral Health Patient policy. 5. Comfort bath system, may shower in Zone B. 6. No personal belongings; at RN discretion 7. Visitors: none at this time 8. Activities: at nursing's discretion, soft items only 9. ?Bathroom privileges without limitation in Zone B 10. Phone: Limited to [facility] cordless phone at this time. 11. Due to INVOLUNTARY status, patient is being held at [facility] by the Department of Mental Health ([facility]) until 2nd certification by [facility] Psychiatrist can be performed (within 24 hours). Staff will provide de-escalation support (CPI) as needed. If patient wishes to leave [facility], staff will contact [facility] Crisis Screener ([phone]) and On-Call Sat Instructor ([phone]) as soon as possible. In the event of elopement, notify [place] State Police ([phone]). Patient is currently involuntarily at [facility]. [facility] Frontline Batch Blender will continue seeking placement. Please contact the Nut Tightener Sat Instructor ([phone]) for any needed changes to Safety Plan. Safety plan has been provided to interdepartmental care team. Patient will be transported by [employer] at time of discharge.
--- NOTE | 2023-03-29 14:05 | W.EDPROG ---
Date of service: 03/29/23 Time of Service: 14:05 Medical Decision Making Patient reassessed: She continues to refuse recommended treatment including hospitalization for psychiatric illness. I had a discussion with the patient about my diagnostic/treatment plan. Patient declines plan and wishes to leave against medical advise. I reiterated my concerns to the patient and explained the risks of leaving prior to completion of workup and treatment. I specifically emphasized the possibility of life-threatening or lifestyle modifying disease that would not be appropriately treated if they leave. Patient verbalized understanding of my concerns and the potential for life threatening or lifestyle modifying disease. Patient has capacity to make informed decision. I again explained my concerns and urged the patient to stay for treatment as outlined. Patient continued to refuse. I then discussed potential less ideal alternatives to diagnostic/treatment plan as outlines and patient refused. I recommended that the patient follow-up with primary care physician RICKEY or return to the Emergency Department at any time for further treatment. Care management involved. Patient has refused temporary housing. Care management assisting in arranging transportation and tent for patient. Sign Out Sign Out Data: Sign Out Comment: Patient here with paranoid delusional thought on warrant for emergency examination. Initial certification was performed by myself. Second certification pending by psychiatrist. Last updated by Rip Angelo MD at 03/24/23 16:43 Sign Out Comment: Patient awaiting involuntary emergency examination. She continues to refuse interventions. She continues to exhibit delusional thought and paranoia. Last updated by Rip Angelo MD at 03/27/23 16:40 Sign Out Comment: 72yo F, pyschosis, involuntary. EEd. Pending placement. Refusing labs and refusing to speak with mental health. No behavioral or violence issues. Last updated by Nhi Evans MD at 03/27/23 22:27 Sign Out Comment: The patient is a 72-year-old female, who was in the ED observation over the arc of this shift for ongoing behavioral health crisis. The patient continues to exhibit delusional thinking and profound paranoia. She currently is fixated on whether or not the medical providers in the emergency department have been to screen for opioids. She is refusing to engage with any of the providers due to this paranoia. She continues to be a behavioral health hold for involuntary evaluation. Case signed out to Dr. Rip Angelo at 8 AM. Last updated by Clifford Woodall MD at 03/28/23 08:04 Sign Out Comment: [facility] noting that EE will be dismissed. Patient is remaining here voluntarily overnight till medical social consultant can be put in place for tomorrow morning. Last updated by Rip Angelo MD at 03/28/23 16:54 Sign Out Comment: EE decertified by state, patient is not on a hold; awaiting care management resources in AM for discharge Last updated by Pradip Hendrickson MD at 03/28/23 22:43 Sign Out Comment: No longer on MH hold, currently awaiting tent and other care management resources. Has been sleeping during my shift. Last updated by Casey Hutson MD at 03/29/23 07:12 Sign Out Comment: Psychiatric emergency hold. Pending placement and second certification by psychiatrist. Patient hemodynamically stable. Last updated by Jerad Ward DO at 03/24/23 22:19 Sign Out Comment: EE for delusions, awaiting placement Last updated by Pradip Hendrickson MD at 03/25/23 07:33 Sign Out Comment: Patient was placed on EEG with second certification which was then rescinded by the state. Patient is still significantly psychotic. Signed out to Dr. Ward Last updated by Casey Hutson MD at 03/25/23 15:11 Sign Out Comment: Patient initially admitted here, EE once, second CERT complete, state refused and recommended safety plan and discharge home. I disagree with this and do not think it is safe or in the patient's best interest. Repeat EE process has been started. Pending second certification again. Last updated by Jerad Ward DO at 03/25/23 20:40 Sign Out Comment: This is an unfortunate 72-year-old female who is delusional and paranoid who has been living in a tent and was brought in on a warrant. She was initially EE'd but this was rescinded by the [facility], despite the fact that psychiatry and the emergency physician both felt she did not have capacity to make medical decisions. They have restarted the process to EE her and she is awaiting her second second CERT. She slept throughout the night and had no issues. Last updated by Betty Cool MD at 03/26/23 08:08 Sign Out Comment: 2nd cert done this evening at around 1400. [facility] to re-eval at 1930. Pending psych placement. No acute behavioral events or restraints on my time. Last updated by Nhi Evans MD at 03/26/23 15:56 Sign Out Comment: Patient on EE, refused to participate with [facility] this evening. Insisting that everyone prove that they aren't on drugs before she'll talk to them. No acute issues during my shift. Placement still pending. Last updated by Casey Hutson MD at 03/26/23 22:34 Sign Out Comment: This is 72 yo female who has been EE'd for paranoia and delusions. She has refused any medication but has been otherwise cooperative. The patient slept or rested last night. At that time she appeared to be talking to herself but did not require any interventions. Last updated by Betty Cool MD at 03/27/23 07:53 Discharge Plan Disposition Patient Disposition: Against Medical Advice Discharge Details Clinical Impression: Delusional disorder, Paranoia ED Provider: Rip Angelo Home Meds and New Rx's Prescriptions: No Action No Known Home Meds Discharge Instructions Instructions: Against Medical Advice (ED) Additional Instructions: Please follow-up with your primary care physician. Please return to the ER at any time should you wish to pursue treatment of your psychiatric illness as recommended. Referrals: [facility] [Outside] Discharge Data Discharge Date/Time-TO BE ENTERED AT DEPARTURE: 03/29/23 15:13
--- NOTE | 2023-03-29 16:16 | CMPROGNOTE_ITS ---
Date of service: 03/29/23 Time of Service: 16:17 Care Management Progress Note Progress Note Text Progress Note Text: CM met with Sarah to discuss discharge plans. Yesterday [facility] was notified that the legal team at the [facility] determined that Sarah could no longre be held involuntarily. Sarah declined to seek voluntary placement for treatment and plans for discharge were initiated this morning. [facility] contacted [facility] as Sarah was seeking housing in a hotel. was informed that [facility] does not have emergency housing available and can only offer a tent and sleeping bag. CM offred to coordinate transportation to a destination of Sarah's choice. Sarah chose to return to her tent at [address] [place] [address]. [facility] was contacted and arrived to transport Sarah back to [place] around 15:13.
--- NOTE | 2023-03-29 16:16 | PDOC.CMPRO ---
Date of service: 03/29/23 Time of Service: 16:17 Care Management Progress Note Progress Note Text Progress Note Text: CM met with Sarah to discuss discharge plans. Yesterday [facility] was notified that the legal team at the [facility] determined that Sarah could no longre be held involuntarily. Sarah declined to seek voluntary placement for treatment and plans for discharge were initiated this morning. [facility] contacted [facility] as Sarah was seeking housing in a hotel. was informed that [facility] does not have emergency housing available and can only offer a tent and sleeping bag. CM offred to coordinate transportation to a destination of Sarah's choice. Sarah chose to return to her tent at [address] [place] [address]. [facility] was contacted and arrived to transport Sarah back to [place] around 15:13.
== END 2023-03-29 15:13 | disposition left against medical advice (07) ==
PROVIDERS: Emergency Provider Student in an Organized Health Care Education/Training Program
DX: F22 Delusional disorders (principal); F23 Brief psychotic disorder; Z59.00 Homelessness unspecified; Z53.9 Procedure and treatment not carried out, unspecified reason
CPT/HCPCS: 00123; 80053; 80307; 99285; 80320; 80329; 81003; 83735; 84443; 84484; 85025